=== PATIENT | male | born 1960 | race Two or more races ===

== ENCOUNTER → 2017-07-14 | Day surgery (SDC) | payer OTHER ==
[~2017-07-14] VITALS: Ht 182.9 cm; Wt 109.0 kg
[~2017-07-14] MED LIST: 0.9% Sodium Chloride 1,000 ML IV SCH; AMLO5TAB2 PO; ASPI-973 PO; LOSA1TAB35 PO; Sodium Chloride LOK Flush 10 mL Syringe IV PRN; fentaNYL-PF 50 mCg/mL 2 mL Inj IVPUSH PRN
[2017-07-14 08:54] VITALS: BP 183/96; PULSE 55; RESP 14; O2SAT 98
[2017-07-14 10:01] VITALS: BP 192/86; PULSE 51; RESP 12; O2SAT 97
--- NOTE | 2017-07-14 10:27 | ENDO ---
[address] [address] ENDOSCOPY PROCEDURE PATIENT: JADE GUERRERO : 1960 MR#: [id number] ADMIT: 07/14/2017 JOB ID: [id number] TYPE OF PROCEDURE: Colonoscopy. INDICATION: Personal history of colon polyps. Patient's ASA classification is two. Mallampati score is two. MEDICATIONS: None at the patient's request. INSTRUMENT USED: [id number]-[id number] PREPARATION QUALITY: Good. PROCEDURE DETAILS: After informed consent was obtained, the patient was brought in to the GI suite, where he was placed on oxygen via nasal cannula and monitored with continuous pulse oximeter, telemetry, and blood pressure monitoring. A time-out was performed. Then, he was placed in a left lateral decubitus position. Digital rectal exam was performed and was unremarkable. The colonoscope was then inserted into the rectum and advanced under direct visualization to the cecum, which was identified by the presence of the ileocecal valve and appendiceal orifice. Once the cecum was reached, the colonoscope was withdrawn back to the rectum. The mucosa and lumen were examined. In the rectum, retroflexion was performed. Following retroflexion, remaining air in the rectum was suctioned, and procedure was completed. FINDINGS: 1. In the cecum there was a diminutive polyp that was removed with cold biopsy forceps. 2. In the transverse colon, there was an approximately 4 mm sessile polyp that was removed with a cold snare. 3. In the rectum there was a 3-4 mm sessile polyp that was removed with a cold snare. IMPRESSIONS: 1. Cecal polyp. 2. Transverse colon polyp. 3. Rectal polyp. RECOMMENDATIONS: 1. Repeat colonoscopy pending polyp pathology results. 2. Follow up in GI clinic as needed. COMPLICATIONS: None. ESTIMATED BLOOD LOSS: Less than 5 mL.
--- NOTE | 2017-07-17 09:50 | PATH ---
SURGICAL PATHOLOGY Attending Physician:Gee Valverde CASE STATUS: Signed Out PATIENT NAME: JADE GUERRERO PID: [id number] : 1960 DATE COLLECTED:07/14/2017 21:22 SPECIMEN: 1: Colon, Polyp 2: Colon, Polyp 3: Rectum, Biopsy CLINICAL HISTORY: 1). TRANSVERSE COLON POLYP 2). CECAL POLYP 3). RECTAL POLYP FINAL DIAGNOSIS: 1. Transverse Colon, Polyp, Biopsy: Tubular adenoma. 2. Cecum, Polyp, Biopsy: Tubular adenoma. 3. Rectum, Polyp, Biopsy: Colonic mucosa with no diagnostic abnormality consistent with polypoid redundancy. Negative for dysplasia and malignancy. ICD10: D12.3 D12.0 GROSS DESCRIPTION: The specimen is received in three formalin filled containers labeled with the patient's name. 1). The specimen is labeled "transverse colon polyp" and consists of 4 portions of tissue which aggregate to 0.3 x 0.3 x 0.2 CM. The specimen is entirely submitted in cassette 1A. 2). The specimen is labeled "cecal polyp" and consists of a 0.4 x 0.3 x 0.2 CM portion of tissue which is entirely submitted in cassette 2A. 3). The specimen is labeled "rectum polyp" and consists of a 0.1 x 0.1 x 0.1 CM portion of tissue which is entirely submitted in cassette 3A. 07/14/2017KS ICD-9 CODES: CPT CODES: 1: 48197 2: 70867 3: 77077 Electronically Signed Out Amelia Potter MD [facility] Pathology [facility] [address], [place] [address] Technical component performed at [facility], [address], [place], [address]
== END | disposition home or self-care (01) ==
LOC: END 07:52
PROVIDERS: ATTEND Internal Medicine Gastroenterology
DX: Z12.11 Encounter for screening for malignant neoplasm of colon (principal); D12.0 Benign neoplasm of cecum; D12.3 Benign neoplasm of transverse colon; K62.1 Rectal polyp; Z86.010 Personal history of colon polyps; I10 Essential (primary) hypertension
CPT/HCPCS: 45380; 45385; J7030